=== PATIENT | female | born 1990 ===

== ENCOUNTER 2017-03-08 19:08 | Emergency (ER) | payer OTHER ==
[2017-03-08 19:17] VITALS: BP 118/78; PULSE 100; RESP 18; TEMP 98.5; O2SAT 99
[2017-03-08] MEDS ORDERED: Sodium Chloride 0.9% 1,000 ML IV STA (19:29)
--- NOTE | 2017-03-08 19:31 | ED PDOC ---
HPI: Abdomen Time Seen by Provider: 03/08/17 19:23 Chief Complaint (Nursing): Abdominal Pain Chief Complaint (Provider): Abd pain History Per: Patient History/Exam Limitations: no limitations Onset/Duration Of Symptoms: Days (Tuesday) Outside of [place] travel?: No Additional Complaint(s): Bubbling abd pain/cramping. Pt. had shrimp and symptoms started shortly after. Diarhea, multiple times nonbloody. No back pain, chest pain, dyspnea, weakness, headaches, dizziness, travel. No fever. No nausea, vomit. Past Medical History Reviewed: Nursing Documentation, Vital Signs Vital Signs: Last Vital Signs Temp 98.5 F 03/08/17 19:15 Pulse 100 H 03/08/17 19:15 Resp 18 03/08/17 19:15 BP 118/78 03/08/17 19:15 Pulse Ox 99 03/08/17 19:32 - Medical History PMH: No Chronic Diseases - Surgical History Surgical History: No Surg Hx - Family History Family History: States: Unknown Family Hx - Living Arrangements Living Arrangements: With Family - Social History Alcohol: None Drugs: Denies - Allergies Allergies/Adverse Reactions: Allergies Allergy/AdvReac Type Severity Reaction Status Date / Time No Known Allergies Allergy Verified 03/08/17 19:15 Review of Systems ROS Statement: Except As Marked, All Systems Reviewed And Found Negative Gastrointestinal: Positive for: Abdominal Pain, Diarrhea Physical Exam - Reviewed Nursing Documentation Reviewed: Yes Vital Signs Reviewed: Yes - Physical Exam Appears: Positive for: Non-toxic, No Acute Distress Head Exam: Positive for: ATRAUMATIC, NORMAL INSPECTION, NORMOCEPHALIC Skin: Positive for: Normal Color, Warm, DRY Eye Exam: Positive for: EOMI, Normal appearance, PERRL ENT: Positive for: Normal ENT Inspection Neck: Positive for: Normal, Painless ROM Cardiovascular/Chest: Positive for: Regular Rate, Rhythm Respiratory: Positive for: CNT, Normal Breath Sounds Gastrointestinal/Abdominal: Positive for: Bowel Sounds, Soft, Tenderness ( diffuse mild). Negative for: Guarding Back: Positive for: Normal Inspection. Negative for: L CVA Tenderness, R CVA Tenderness Extremity: Positive for: Normal ROM. Negative for: Tenderness, Pedal Edema Neurologic/Psych: Positive for: Alert, Oriented - Laboratory Results Result Diagrams: 03/08/17 19:51 03/08/17 19:51 Interpretation Of Abn Labs: 958.27 bhcg - ECG O2 Sat by Pulse Oximetry: 99 - CT Scan/US US Other Rad Studies (CT/US): Read By Radiologist Other Rad Interpretation: ? IUP - Progress ED Course And Treament: 2152: Pt. stable. AAOx3. Pain free. Tolerated PO. FU with obgyn or return in 3 days for repeat bhcg and possible US. Inconclusive information to r/o ectopic vs IUP. Disposition - Clinical Impression Clinical Impression: Early stage of - Patient ED Disposition Is Patient to be Admitted: No Counseled Patient/Family Regarding: Studies Performed, Diagnosis, Need For Followup - Disposition [facility] - [facility]17 Disposition: Routine/Home Disposition Time: 22:04 Condition: STABLE Additional Instructions: Return in 3 days or see your obgyn in 3 days for repeat bhcg and ultrasound to confirm intrauterine and rule out ectopic . Return right away if increased pain, dizziness, weakness, or not feeling right. Instructions: (ED) Forms: [facility] (Occ[place]), [facility] ED School/Work Excuse
[2017-03-08 19:54] LABS: BASO % 0.4 % (0.0-2.0); EOS % 0.6 % (0.0-4.0); HEMATOCRIT 35.2 % (34.0-47.0); LYMPH # 2.4 K/uL (1.0-4.3); LYMPH % 31.3 % (20.0-40.0); MEAN CELL VOLUME 89.6 fl (81.0-99.0); MEAN CORPUSCULAR HEMOGLOBIN 30.3 pg (27.0-31.0); MEAN CORPUSCULAR HGB CONC 33.8 g/dL (33.0-37.0); MEAN PLATELET VOLUME 8.2 fl (7.2-11.7); MONO # 0.6 K/uL (0.0-0.8); MONO % 7.5 % (0.0-10.0); NEUT # 4.7 K/uL (1.8-7.0); NEUT % 60.2 % (50.0-75.0); RED CELL DISTRIBUTION WIDTH 13.2 % (11.5-14.5); WHITE BLOOD COUNT 7.8 K/uL (4.8-10.8)
[2017-03-08 20:04] LABS: ALB/GLOB RATIO 1.5 (1.0-2.1); ALKALINE PHOSPHATASE 34 U/L (38-126); ALT/SGPT 30 U/L (9-52); AST/SGOT 20 U/L (14-36); BILIRUBIN,TOTAL 0.3 mg/dl (0.2-1.3); BLOOD UREA NITROGEN 13 mg/dl (7-17); CALCIUM 8.4 mg/dL (8.4-10.2); CARBON DIOXIDE 24 mmol/L (22-30); CHLORIDE 106 mmol/L (98-107); GFR AFRICAN-AMERICAN > 60; GLUCOSE,RANDOM 102 mg/dL (65-105); LIPASE 66 U/L (23-300); POTASSIUM 3.4 MMOL/L (3.6-5.0); SODIUM 140 mmol/l (132-148); TOTAL PROTEIN 6.9 G/DL (6.3-8.2)
--- NOTE | 2017-03-09 07:40 | US ---
HISTORY: and pain Beta HCG results: Attending Menstrual status: LMP 02/07/2017. COMPARISON: None available. TECHNIQUE: Transvaginal only. Real -time technique with 2D, duplex and color Doppler FINDINGS: UTERUS: Measures 3.7 x 4.6 x 7.7 cm. Normal in size and appearance. No fibroid or other mass lesion seen. ENDOMETRIUM: Measures gestational sac measurement 2.2 mm below threshold for calculation of reliable gestational age. No pole or yolk sac identified CERVIX: No cervical abnormality identified. Closed cervix 3.3 cm RIGHT OVARY: Measures 2.1 x 3.2 x 3.4 cm. No solid mass. Normal flow. LEFT OVARY: Measures 1.8 x 1.8 x 2.3 cm. No solid mass. Normal flow. FREE FLUID: No significant free fluid noted. OTHER FINDINGS: None. IMPRESSION: Small gestational sac, mean diameter 2.2 mm Below the threshold for calculation of a reliable gestational age. Concordant results (preliminary interpretation) provided by [facility]. Procedure Completed: 20:53 Preliminary ([facility]) Report: Dictated and Authenticated: 21:21 Final Interpretation: 07:38 March 09, 2017.
== END 2017-03-08 22:25 | disposition home or self-care (01) ==
LOC: H.ER 19:08
DX: Z33.1 Pregnant state, incidental (principal)

== ENCOUNTER 2017-03-11 16:44 | Emergency (ER) | payer SELFPAY ==
[2017-03-11 16:54] VITALS: BP 99/56; PULSE 78; RESP 16; TEMP 98.8; O2SAT 100
--- NOTE | 2017-03-11 17:24 | ED PDOC ---
HPI: General Adult Time Seen by Provider: 03/11/17 16:50 Chief Complaint (Nursing): Female Genitourinary Chief Complaint (Provider): Repeat Blood Work History Per: Patient History/Exam Limitations: no limitations Have you had recent travel within the past 21 days to any of the following countries: [place], [place], [place] or [place]?: No Additional Complaint(s): Lucila Romero, a 27 year old female, presents to the ED for repeat blood work. The patient reports that she was seen here 2 days ago and had an ultra sound performed. She reports that when she was seen on Tuesday she was initially here for diarrhea and abdominal cramping, which has since resolved. She states that she found out she was at that time and was told to follow up to have her beta levels rechecked. Denies nausea, vomiting, dysuria, hematuria. No allergies PMD: NO FAMILY PROVIDER Past Medical History Reviewed: Historical Data, Nursing Documentation, Vital Signs Vital Signs: Last Vital Signs Temp 98.8 F 03/11/17 16:51 Pulse 78 03/11/17 16:51 Resp 16 03/11/17 16:51 BP 99/56 L 03/11/17 16:51 Pulse Ox 100 03/11/17 17:30 - Medical History PMH: No Chronic Diseases - Surgical History Surgical History: No Surg Hx - Family History Family History: States: Unknown Family Hx - Social History Current smoker - smoking cessation education provided: No Alcohol: None Drugs: Denies - Home Medications Home Medications: Ambulatory Orders Medication Instructions Recorded Vit No.78/Iron/FA 1 each PO DAILY #30 tablet 03/11/17 [Prenatabs FA Tablet] - Allergies Allergies/Adverse Reactions: Allergies Allergy/AdvReac Type Severity Reaction Status Date / Time No Known Allergies Allergy Verified 03/08/17 19:15 Review of Systems ROS Statement: Except As Marked, All Systems Reviewed And Found Negative Constitutional: Positive for: Other (Repeat blood work) Physical Exam - Reviewed Nursing Documentation Reviewed: Yes Vital Signs Reviewed: Yes - Physical Exam Appears: Positive for: Non-toxic, No Acute Distress Head Exam: Positive for: ATRAUMATIC, NORMAL INSPECTION, NORMOCEPHALIC Skin: Positive for: Normal Color, Warm, Dry. Negative for: Rash Eye Exam: Positive for: Normal appearance, EOMI, PERRL. Negative for: Nystagmus ENT: Positive for: Normal ENT Inspection. Negative for: Nasal Congestion, Tonsillar Exudate Neck: Positive for: Normal, Painless ROM, Supple Cardiovascular/Chest: Positive for: Regular Rate, Rhythm, Chest Non Tender. Negative for: Tachycardia Respiratory: Positive for: Normal Breath Sounds. Negative for: Rales, Rhonchi, Wheezing, Respiratory Distress Gastrointestinal/Abdominal: Positive for: Normal Exam, Bowel Sounds, Soft. Negative for: Mass, Guarding, Rebound Back: Positive for: Normal Inspection. Negative for: L CVA Tenderness, R CVA Tenderness Extremity: Positive for: Normal ROM, Tenderness. Negative for: Deformity, Swelling Neurologic/Psych: Positive for: Alert, Oriented, Gait - ECG O2 Sat by Pulse Oximetry: 100 (RA) Pulse Ox Interpretation: Normal Medical Decision Making Medical Decision Makin Initial Impression 27 y/o female presenting for repeat bloodwork Initial Plan: * Upreg * Udip * [id number] * Reevaluation Beta 3927 No abdominal pain or bleeding, no US indicated at this time. Pt given OB to follow up with. Started on Pre joey vitamins. Advised to return to ED if at anytime condition worsens Scribe Attestation Documented by Melinda Avalos acting as a scribe for Sue Stewart PA-C. Scribe Attestation All medical record entries made by the Scribe were at my direction and personally dictated by me. I have reviewed the chart and agree that the record accurately reflects my personal performance of the history, physical exam, medical decision making, and the department course for this patient. I have also personally directed, reviewed, and agree with the discharge instructions and disposition. Disposition - Clinical Impression Clinical Impression: Early stage of - Patient ED Disposition Is Patient to be Admitted: No - Disposition [facility] Disposition: Routine/Home Disposition Time: 23:09 Condition: STABLE Additional Instructions: Beta today: 6337 Prescriptions: Vit No.78/Iron/FA [Prenatabs FA Tablet] 1 each PO DAILY #30 tablet Instructions: (ED) Forms: [facility] (Syrian)
[2017-03-11 18:33] LABS: RBC URINE 4 /hpf (0-3); URINE BACTERIA RARE (<OCC); URINE BILIRUBIN NEGATIVE (NEGATIVE); URINE BLOOD NEGATIVE (NEGATIVE); URINE COLOR YELLOW (YELLOW); URINE GLUCOSE (UA) NEG (Normal); URINE KETONE TRACE mg/dL (NEGATIVE); URINE LEUKOCYTE ESTERASE NEG Leu/uL (Negative); URINE PROTEIN NEGATIVE (NEGATIVE); URINE UROBILINOGEN 0.2-1.0 mg/dL (0.2-1.0); WBC URINE < 1 /hpf (0-5)
== END 2017-03-11 19:39 | disposition home or self-care (01) ==
LOC: H.ER 16:44
DX: O26.91 Pregnancy related conditions, unspecified, first trimester (principal); R10.2 Pelvic and perineal pain

== ENCOUNTER 2017-04-20 09:41 | Emergency (ER) | payer SELFPAY ==
[2017-04-20 10:31] VITALS: BP 105/62; PULSE 88; RESP 18; TEMP 97.8; O2SAT 99
--- NOTE | 2017-04-20 10:51 | ED PDOC ---
HPI: Abdomen Chief Complaint (Provider): abd pain History Per: Patient History/Exam Limitations: no limitations Outside of US travel?: No Current Symptoms Are (Timing): Gone Now Location Of Pain/Discomfort: RUQ Quality Of Discomfort: "Pain" Associated Symptoms: Constipation Exacerbating Factors: Food Alleviating Factors: Rest Last Bowel Movement: Yesterday <Francisco Padilla - Last Filed: 04/20/17 11:54> <Lexis Corey - Last Filed: 04/20/17 12:10> Time Seen by Provider: 04/20/17 10:28 Chief Complaint (Nursing): Abdominal Pain Additional Complaint(s): 27 y/o F with no significant PMhx presents to ED for persistent RUQ pain. As per patient pain started about 2 month ago, is intermittent and worsen with food. Denies vomiting, nausea, fever, dysuria, hematuria, diarrhea. Patient admits suffering from constipation for the past month. She is 11 weeks and denies vaginal bleeding, LOF, contractions or pelvic pain. (Francisco Padilla ) Supervising Attending Note - Supervising Attending Note The Documented history was done by the: Physician Escort Blind The documented physical exam was done by the: Physician Escort Blind The documented procedures were done by the: Physician Escort Blind - Attestation: I have personally seen and examined this patient.: Yes I have fully participated in the care of the patient.: Yes I have reviewed all pertinent clinical information: Yes <Lexis Corey - Last Filed: 04/20/17 12:10> Past Medical History Reviewed: Vital Signs - Medical History PMH: No Chronic Diseases - Surgical History Surgical History: No Surg Hx - Family History Family History: States: Unknown Family Hx - Living Arrangements Living Arrangements: With Family - Social History Current smoker - smoking cessation education provided: No Alcohol: None Drugs: Denies <Francisco Padilla - Last Filed: 04/20/17 11:54> <Lexis Corey - Last Filed: 04/20/17 12:10> Vital Signs: Last Vital Signs Temp 97.8 F 04/20/17 10:20 Pulse 88 04/20/17 10:20 Resp 18 04/20/17 10:20 BP 105/62 04/20/17 10:20 Pulse Ox 99 04/20/17 12:00 - Home Medications Home Medications: Ambulatory Orders Medication Instructions Recorded Vit No.78/Iron/FA 1 each PO DAILY #30 tablet 03/11/17 [Prenatabs FA Tablet] - Allergies Allergies/Adverse Reactions: Allergies Allergy/AdvReac Type Severity Reaction Status Date / Time No Known Allergies Allergy Verified 04/20/17 10:28 Review of Systems ROS Statement: Except As Marked, All Systems Reviewed And Found Negative Gastrointestinal: Positive for: Abdominal Pain, Constipation, Other (bloating) <Francisco Padilla - Last Filed: 04/20/17 11:54> Physical Exam - Physical Exam Appears: Positive for: Well, Non-toxic Skin: Positive for: Normal Color, Warm Eye Exam: Positive for: Normal appearance, PERRL Cardiovascular/Chest: Positive for: Regular Rate, Rhythm. Negative for: Gallop , JVD Respiratory: Positive for: Normal Breath Sounds. Negative for: Crackles, Rales , Wheezing, Respiratory Distress Gastrointestinal/Abdominal: Positive for: Soft, Tenderness (Diffuse mild tenderness. ). Negative for: Distended, Guarding, Rebound Back: Negative for: L CVA Tenderness, R CVA Tenderness Extremity: Negative for: Tenderness, Pedal Edema Neurologic/Psych: Positive for: Alert, Oriented. Negative for: Motor/Sensory Deficits <Francisco Padilla - Last Filed: 04/20/17 11:54> - Laboratory Results Result Diagrams: 04/20/17 10:50 04/20/17 10:50 - ECG O2 Sat by Pulse Oximetry: 99 <Francisco Padilla - Last Filed: 04/20/17 11:54> - Laboratory Results Result Diagrams: 04/20/17 10:50 04/20/17 10:50 <Lexis Corey - Last Filed: 04/20/17 12:10> - Progress ED Course And Treament: Patient had no pain at the time she presented to ED VS WNL CBC, CMP and UA unremarkable Prelim report of RUQ shows GB polyps, no stones, liver, R/kidney, Pancreas unremarkable(Pending official report) Patient to be DC home and f/u as outpatient (Francisco Padilla) Medical Decision Making <Francisco Padilla - Last Filed: 04/20/17 11:54> <Lexsi Corey - Last Filed: 04/20/17 12:10> Medical Decision Makin weeks Chronic RUQ pain(Asymptomatic at the time of exam at ED) R/O Gallbladder/Hepatic disease vs Constipation F/U Abd US, Urinedip, CMP, CBC. (Francisco Padilla) Disposition - Patient ED Disposition Is Patient to be Admitted: No Counseled Patient/Family Regarding: Diagnosis, Need For Followup - Disposition Disposition: Routine/Home Disposition Time: 11:58 <Francisco Padilla - Last Filed: 04/20/17 11:54> <Lexis Corey - Last Filed: 04/20/17 12:10> - Clinical Impression Clinical Impression: Right upper quadrant abdominal pain, Gallbladder polyp - Disposition Referrals: [facility] [Outside] [facility] Condition: GOOD Additional Instructions: F/U [facility] your PMD at [facility] Return to ED if sever abd pain, vaginal bleeding, fever, vomiting Instructions: (ED), Biliary Colic (ED) Forms: [facility] (Maltese) Print Language: [place]
[2017-04-20 11:08] LABS: BASO % 0.6 % (0.0-2.0); EOS % 0.5 % (0.0-4.0); HEMATOCRIT 35.5 % (34.0-47.0); LYMPH # 1.7 K/uL (1.0-4.3); LYMPH % 24.4 % (20.0-40.0); MEAN CELL VOLUME 89.9 fl (81.0-99.0); MEAN CORPUSCULAR HEMOGLOBIN 30.7 pg (27.0-31.0); MEAN CORPUSCULAR HGB CONC 34.1 g/dL (33.0-37.0); MEAN PLATELET VOLUME 8.8 fl (7.2-11.7); MONO # 0.4 K/uL (0.0-0.8); MONO % 6.1 % (0.0-10.0); NEUT # 4.7 K/uL (1.8-7.0); NEUT % 68.4 % (50.0-75.0); NRBC % 0.1 % (0.0-0.0); RED CELL DISTRIBUTION WIDTH 13.3 % (11.5-14.5); WHITE BLOOD COUNT 6.9 K/uL (4.8-10.8)
[2017-04-20 11:17] LABS: ALB/GLOB RATIO 1.3 (1.0-2.1); ALKALINE PHOSPHATASE 32 U/L (38-126); ALT/SGPT 27 U/L (9-52); AST/SGOT 19 U/L (14-36); BILIRUBIN,TOTAL 0.3 mg/dl (0.2-1.3); BLOOD UREA NITROGEN 9 mg/dl (7-17); CALCIUM 8.9 mg/dL (8.4-10.2); CARBON DIOXIDE 24 mmol/L (22-30); CHLORIDE 103 mmol/L (98-107); GFR AFRICAN-AMERICAN > 60; GLUCOSE,RANDOM 78 mg/dL (65-105); POTASSIUM 3.5 MMOL/L (3.6-5.0); SODIUM 137 mmol/l (132-148); TOTAL PROTEIN 7.1 G/DL (6.3-8.2)
--- NOTE | 2017-04-20 12:16 | US ---
HISTORY: RUQ pain COMPARISON: None. TECHNIQUE: Grayscale imaging was performed. FINDINGS: LIVER: Measures 10.8 cm in length. Normal echogenicity of the liver parenchyma. No mass. No intrahepatic bile duct dilatation. GALLBLADDER: There is a 4 mm polyp along the posterior wall and tiny polyp along the anterior wall. . No gallstones. COMMON BILE DUCT: Measures 2.0 mm. No stones. No dilatation. PANCREAS: Normal in size and echotexture. No mass. No ductal dilatation. RIGHT KIDNEY: Measures 10.3 cm in length. Normal echogenicity. No calculus, mass, or hydronephrosis. AORTA: No aneurysmal dilatation. IVC: Unremarkable. OTHER FINDINGS: None . IMPRESSION: No cholelithiasis or biliary dilatation. 4 mm gallbladder polyp along the posterior wall and a tiny polyp along the anterior wall.
== END 2017-04-20 12:30 | disposition home or self-care (01) ==
LOC: H.ER 09:41
DX: R10.11 Right upper quadrant pain (principal); K82.4 Cholesterolosis of gallbladder; Z33.1 Pregnant state, incidental

== ENCOUNTER 2017-05-07 11:40 | Emergency (ER) | payer SELFPAY ==
[2017-05-07 11:51] VITALS: BP 110/57; PULSE 92; RESP 16; TEMP 98; O2SAT 100; BMI 21.2
--- NOTE | 2017-05-07 12:31 | ED PDOC ---
HPI: CCC, URI, Sore Throat Time Seen by Provider: 05/07/17 12:24 Chief Complaint (Nursing): Cough, Cold, Congestion Chief Complaint (Provider): URI History Per: Patient Additional Complaint(s): 27 yo female, no PMH, presents to ED at 13wks c/o cough and congestion x4days. pt denies fevers at home. No abdominal pain or vaginal bleeding Past Medical History Reviewed: Nursing Documentation, Vital Signs Vital Signs: Last Vital Signs Temp 98.0 F 05/07/17 11:50 Pulse 92 H 05/07/17 11:50 Resp 16 05/07/17 11:50 BP 110/57 L 05/07/17 11:50 Pulse Ox 100 05/07/17 11:50 - Medical History PMH: No Chronic Diseases - Surgical History Surgical History: No Surg Hx - Family History Family History: States: Unknown Family Hx - Living Arrangements Living Arrangements: With Family - Social History Current smoker - smoking cessation education provided: No Alcohol: None Drugs: Denies - Home Medications Home Medications: Ambulatory Orders Medication Instructions Recorded Vit No.78/Iron/FA 1 each PO DAILY #30 tablet 03/11/17 [Prenatabs FA Tablet] - Allergies Allergies/Adverse Reactions: Allergies Allergy/AdvReac Type Severity Reaction Status Date / Time No Known Allergies Allergy Verified 05/07/17 11:58 Review of Systems ROS Statement: Except As Marked, All Systems Reviewed And Found Negative ENT: Positive for: Nose Congestion Respiratory: Positive for: Cough Physical Exam - Reviewed Nursing Documentation Reviewed: Yes Vital Signs Reviewed: Yes - Physical Exam Appears: Positive for: Well, Non-toxic, No Acute Distress Head Exam: Positive for: ATRAUMATIC, NORMAL INSPECTION, NORMOCEPHALIC Skin: Positive for: Normal Color, Warm, DRY Eye Exam: Positive for: EOMI, Normal appearance, PERRL ENT: Positive for: Normal ENT Inspection. Negative for: Pharyngeal Erythema, Tonsillar Exudate, Tonsillar Swelling Neck: Positive for: Normal, Painless ROM Cardiovascular/Chest: Positive for: Regular Rate, Rhythm Respiratory: Positive for: CNT, Normal Breath Sounds Gastrointestinal/Abdominal: Positive for: Normal Exam, Bowel Sounds, Soft Back: Positive for: Normal Inspection Extremity: Positive for: Normal ROM Neurologic/Psych: Positive for: Alert, Oriented - ECG O2 Sat by Pulse Oximetry: 100 Medical Decision Making Medical Decision Making: medications safe in discussed at length, as well as supportive care measures Disposition - Clinical Impression Clinical Impression: Upper respiratory infection, rhinitis - Patient ED Disposition Is Patient to be Admitted: No - Disposition Disposition: Routine/Home Disposition Time: 12:32 Condition: STABLE Instructions: Upper Respiratory Infection (ED) Forms: [facility] (Hungarian) - POA Present On Arrival: None
== END 2017-05-07 12:53 | disposition home or self-care (01) ==
LOC: H.ER 11:40
DX: O99.511 Diseases of the respiratory system complicating pregnancy, first trimester (principal); J31.0 Chronic rhinitis; Z3A.13 13 weeks gestation of pregnancy

== ENCOUNTER 2017-10-28 16:23 | Emergency (ER) | payer SELFPAY ==
[2017-10-28 16:39] VITALS: BMI 27.6
--- NOTE | 2017-10-28 17:26 | OBHP ---
Datetime: 10/28/2017 17:22 IP Adm Impression: Term, intrauterine IP Admit Plan: Observation/Evaluation; Discharge home Admit Comment, IP Provider: Patient is a @ 38.5 wks, reports increased vaginal leaking, +FM, so me cramping, no vaginal bleeding. No issues, no medical problems, no surgical history, no a llergies, taking no medication. VE=no pooling, neg nitrazine. closed/thick/high. FHR = 125 mod jhoan, + accels, no decels. One contraction on monitor. Pt ruled out for rupture and labor. Discharge pt home Pelvic Type - PN: Adequate Extremities - PN: Normal Abdomen - PN: Normal Back - PN: Normal Breast - PN: Normal Lungs - PN: Normal Heart - PN: Normal Thyroid - PN: Normal Neurologic - PN: Normal HEENT - PN: Normal General - PN: Normal FHR - Baseline A Provider: 125 Membranes, Provider: Intact Contraction Comments Provider: one Pool Provider: Negative Nitrazine Provider: Negative EGA AdmitDate IP: 38.5 Vital Signs Provider: Reviewed; Within Normal Limits IP Chief Complaint: Suspected ruptured membranes NICHD Variability Prov Fetus A: Moderate 6-25bpm NICHD Accel Fetus A IP Provider: 15X15 NICHD Decel Fetus A IP Provider: None Dilatation, Provider: closed Effacement, Provider: thick Station, Provider: -3 Genitourinary Exam: Normal DTRs - PN: Normal
--- NOTE | 2017-10-28 17:27 | OBDCSUM ---
Datetime: 10/28/2017 17:00 Discharged to, Provider: Home Follow up at, Provider: Clinic Disch Instr Activity: Normal activity Disch Instr Diet: Regular Discharge Instructions, Provider: Routine instructions given Discharge Time: 10/28/2017 17:00 Follow up in weeks, Provider: previously scheduled appointment for next Tuesday, November 04, 2017. Disch Referrals: None Contraception discussed, Prov: Yes Discharge Diagnosis Prov Other: rule out rupture
[2017-10-28 21:36] VITALS: BP 108/61; PULSE 82
== END 2017-10-28 17:00 | disposition home or self-care (01) ==
LOC: H.EROB2 16:23
DX: O47.1 False labor at or after 37 completed weeks of gestation (principal); Z3A.38 38 weeks gestation of pregnancy; O34.63 Maternal care for abnormality of vagina, third trimester; N89.8 Other specified noninflammatory disorders of vagina

== ENCOUNTER 2017-11-01 11:37 | Inpatient (IN) | payer MEDICAID, SELFPAY ==
[2017-11-01 12:52] VITALS: BMI 27.8
--- NOTE | 2017-11-01 13:46 | OBADHP ---
Datetime: 11/01/2017 12:25 Pelvic Type - PN: Adequate Extremities - PN: Normal Abdomen - PN: Normal Back - PN: Normal Breast - PN: Not Done Lungs - PN: Normal Heart - PN: Normal Thyroid - PN: Not Done Neurologic - PN: Normal HEENT - PN: Normal General - PN: Normal FHR - Baseline A Provider: 130 Vital Signs Provider: Reviewed; Within Normal Limits IP Chief Complaint: Uterine contractions; Suspected ruptured membranes NICHD Variability Prov Fetus A: Moderate 6-25bpm NICHD Accel Fetus A IP Provider: 15X15 FHR Category Provider Fetus A: Category I NICHD Decel Fetus A IP Provider: None Dilatation, Provider: fingertip Effacement, Provider: 40 Station, Provider: -2 Genitourinary Exam: Normal DTRs - PN: Not Done EGA AdmitDate IP: 39.2 Datetime: 11/01/2017 12:15 Admit Comment, IP Provider: 27 yo EGA 39.2 presents with suspected ROM and CTX, both started ar ound 4 hours prior to presenting to [facility]. Denies vaginal bleed. Reports: movements ROS: Denies: dizziness, headache, blurred vision, CP/SOB/N/V, dysuria PNC: Dr. Bailey; uncomplicated pmhx: gallbladder polyps famhx: none soc: denies: smoking, etoh, illicit drugs surg: none NKDA Meds: PNV Gen: AAOx3, in acute distress with each contraction Cardiac: S1S2, no murmurs Lungs: CTA bilaterally Abdo: gravid, active bowel sounds CVA: nontender 27 yo IUP EGA 39.2 dated via LMP of 01/30/2017 -Pt is grossly ruptured -Admit to L_D for progression of labor -Dr. Bailey was present for admission -IVHL -CBC, TS -Enema ordered -regular diet for lunch -Options for labor and delivery discussed with patient and her at bedside Case dw Dr. Irwin Dalton MD PGY1 OB Hospitalistnote: Pt seen and examined with PGY1. Spoek to pt about condition, IOL, labor, deli very, pain management, medications incl cytotec/cervidil/Pitocin, delivey and care. She ud nerstnds. Argees to starting with Cytotec Presentation-Admit: Vertex Amniotic Fluid Color, Provider: Clear Membranes, Provider: Ruptured Pool Provider: Positive IP Hx Assessment: The History has been Reviewed and is Current IP Adm Impression: Term, intrauterine ; No Active Labor; Ruptured Membranes IP Admit Plan: Admit to unit; Initiate labor induction protocol Datetime: 10/28/2017 17:22 Contraction Comments Provider: one Nitrazine Provider: Negative
[2017-11-01 14:17] LABS: BASO % 0.2 % (0.0-2.0); EOS % 0.4 % (0.0-4.0); HEMOGLOBIN 13.2 g/dL (12.0-16.0); LYMPH # 1.5 K/uL (1.0-4.3); LYMPH % 15.8 % (20.0-40.0); MEAN CELL VOLUME 92.9 fl (81.0-99.0); MEAN CORPUSCULAR HEMOGLOBIN 30.9 pg (27.0-31.0); MEAN CORPUSCULAR HGB CONC 33.3 g/dL (33.0-37.0); MONO # 0.5 K/uL (0.0-0.8); MONO % 5.6 % (0.0-10.0); NEUT # 7.5 K/uL (1.8-7.0); RBC 4.26 Mil/uL (3.80-5.20); RED CELL DISTRIBUTION WIDTH 13.5 % (11.5-14.5); WHITE BLOOD COUNT 9.7 K/uL (4.8-10.8)
[2017-11-01 15:09] VITALS: O2SAT 100
[2017-11-01] MEDS ORDERED: Lactated Ringer's 1,000 ML IV SCH ×2 (17:30)
[2017-11-01] MEDS ORDERED: Fentanyl/Bupivacaine HCl 250 ML EPI ONE (17:58)
--- NOTE | 2017-11-01 18:25 | OBPN ---
Datetime: 11/01/2017 17:15 IP Progress Impression: Normal progression of labor IP Informed Consent Obtain: Vaginal Delivery IP Procedures: Epidural Placement IP Progress Plan: Continue present management Pool Provider: Positive Membranes, Provider: Ruptured Amniotic Fluid Color, Provider: Clear FHR - Baseline A Provider: 130 IP Progress Note Comment: Pt seen and examined at bedside with Dr. Gayle Pt tried NO for pain relief but with limited success. Pt reports nausea with vomiting and requeste d epidural. Pt was examined by Dr. Gayle: 3 cm/75%/-2 Ordered 2 L LR bolus Anesthesia consulted for epidural placement case d/w Dr. Irwin Dalton MD PGY1 OB Hositalist note: Agree with PGY1 note. I examined this patient myself...Anesthesia consult NICHD Accel Fetus A IP Provider: 15X15 FHR Category Provider Fetus A: Category I NICHD Variability Prov Fetus A: Moderate 6-25bpm Dilatation, Provider: 3 Effacement, Provider: 75 Station, Provider: -2 NICHD Decel Fetus A IP Provider: None Datetime: 11/01/2017 12:25 Vital Signs Provider: Reviewed; Within Normal Limits Datetime: 11/01/2017 12:15 Presentation-Admit: Vertex Datetime: 10/28/2017 17:22 Nitrazine Provider: Negative Contraction Comments Provider: one
--- NOTE | 2017-11-01 20:14 | OBPN ---
Datetime: 11/01/2017 20:00 IP Progress Impression: Reassuring heart rate IP Informed Consent Obtain: Vaginal Delivery; Risks, Benefits and Alternatives Discussed IP Progress Plan: Augmentation; Anticipate Vaginal Delivery Pool Provider: Negative Membranes, Provider: Intact Contraction Comments Provider: 2-4m FHR - Baseline A Provider: 130 Presentation-Admit: Vertex IP Progress Note Comment: Notified that she feels better after epidural and that she is 4cm A; Latnet phase of labor PLAN: discussion with pt and will start Pitocin augmentation. She agreed NICHD Accel Fetus A IP Provider: 15X15 FHR Category Provider Fetus A: Category I NICHD Variability Prov Fetus A: Moderate 6-25bpm Dilatation, Provider: 4 NICHD Decel Fetus A IP Provider: None
--- NOTE | 2017-11-01 22:41 | OBPN ---
Datetime: 11/01/2017 22:35 IP Progress Impression: Normal progression of labor; Reassuring heart rate IP Informed Consent Obtain: Vaginal Delivery IP Progress Plan: Continue present management; Augmentation; Anticipate Vaginal Delivery Pool Provider: Positive Membranes, Provider: Ruptured Amniotic Fluid Color, Provider: Clear Contraction Comments Provider: 2-4m FHR - Baseline A Provider: 135 Presentation-Admit: Vertex IP Progress Note Comment: SHe feels fine. No pain. Active phase of labor PLAN: Pitocin at 4miu/h...observe labor progress Vital Signs Provider: Reviewed NICHD Accel Fetus A IP Provider: [id number] FHR Category Provider Fetus A: Category I NICHD Variability Prov Fetus A: Moderate 6-25bpm Dilatation, Provider: 6 Effacement, Provider: 90 Station, Provider: -1 NICHD Decel Fetus A IP Provider: None
[2017-11-01] MEDS ORDERED: Lidocaine 1% Inj (20ml) ONE (23:35)
[2017-11-02] MEDS ORDERED: Oxycodone/Acetaminophen 5/325 mg Tab PO PRN ×4 (03:19→04:43)
[2017-11-02] MEDS: Lactated Ringer's 1,000 ML IV SCH (04:47)
--- NOTE | 2017-11-02 08:26 | OBDS ---
DELIVERY PERSONNEL Delivery Doctor: Minnie Gayle DO Table Worker: Marilu Bates RN Anesthesiologist: Craig Chavira MD Resident: Kj Bailey Y. MATERNAL INFORMATION Delivery Anesthesia: Epidural Medications in Delivery: Pitocin Estimated Blood Loss (ml): QBL-100 Placenta Cultured: No Maternal Complications: None Provider Comments: of male infant from cephalic presentation 3025 g at 02:49 am 9-9. No nuchal cord was noted. was bulb suctioned at the perineum and was crying spontaneously. Cord w as doubled clamped and cut by father. was placed on mother stomach. Placental was delivered in tact spontaneously and three vessels cord was noted. QBL: 100 ml Ob Hospitalist on-call. I attended delivery which was done by Dr Bailey. Laceratoin repair was co mpleted by me. Agree with above note [facility] LABOR SUMMARY EDC: 11/06/2017 00:00 No. Babies in Womb: 1 Attempted: No Labor Anesthesia: Epidural LABOR INFORMATION Reason for Induction: Not Applicable Onset of Labor: 11/01/2017 22:30 Complete Dilatation: 11/02/2017 01:34 Oxytocin: Augmentation Group B Beta Strep: Negative Antibiotics # of Doses: 0 Steroids Given: None Reason Steroids Not Administered: Not Applicable MEMBRANES Membranes Rupture Method: Spontaneous Rupture of Membranes: 11/01/2017 09:45 Length of Rupture (hrs): 17.07 Amniotic Fluid Color: Clear Amniotic Fluid Amount: Moderate Amniotic Fluid Odor: Normal STAGES OF LABOR Stage 1 hrs: 3 Stage 1 min: 4 Stage 2 hrs: 1 Stage 2 min: 15 Stage 3 hrs: 0 Stage 3 min: 22 Total Time in Labor hrs: 4 Total Time in Labor min: 41 VAGINAL DELIVERY Episiotomy: None Laceration Extension: Second Degree Laceration Type: Perineal; Vaginal Laceration Repair: Yes Laceration Repair Note: 2nd degree perineal laceration repaired . Used 5 cc lidocaine, Vicryl rapide 2-0 x 2. Procedure well tolerated. Initial Vag Sponge Count: 5 Final Vag Sponge Count: 5 Initial Vag Sharps Count: 2 Final Vag Sharps Count: 2 Sponge Count Correct: Yes Sharps Count Correct: Yes Count Comment: count correct BABY A INFORMATION Infant Delivery Date/Time: 11/02/2017 02:49 Method of Delivery: Vaginal Born in Route : No : N/A Forceps: N/A Vacuum Extraction: Successful Shoulder Dystocia : No SHOULDER DYSTOCIA BABY A Infant Delivery Date/Time: 11/02/2017 02:49 PRESENTATION/POSITION BABY A Presentation: Cephalic PLACENTA INFORMATION BABY A Placenta Delivery Time : 11/02/2017 03:11 SCORES BABY A Heart Rate 1 min: >100 bpm Resp Effort 1 min: Good Cry Reflex Irritability 1 min: Cough or Sneeze or Pulls Away Muscle Tone 1 min: Active Motion Color 1 min: Body Babb, Extremities Blue Resuscitation Effort 1 min: N/A SCORE 1 MIN: 9 Heart Rate 5 min: >100 bpm Resp Effort 5 min: Good Cry Reflex Irritability 5 min: Cough or Sneeze or Pulls Away Muscle Tone 5 min: Active Motion Color 5 min: Body [place]abb, Extremities Blue Resuscitation Effort 5 min: N/A SCORE 5 MIN: 9 INFORMATION BABY A Gestational Age at Delivery: 39.3 Gestational Status: Term Infant Outcome : Liveborn Infant Condition : Stable Infant Sex: Male IDENTIFICATION/MEDS BABY A ID Band Number: [id number] ID Band Location: Left Leg; Left Arm WEIGHT/LENGTH BABY A Birthweight (gms): 3025 Infant Weight (lb): 6 Infant Weight (oz): 11 CORD INFORMATION BABY A No. Cord Vessels: 3 Nuchal Cord : N/A Cord Blood Taken: Yes Suction: Mouth; Nose ASSESSMENT BABY A Complications: None Physical Findings at Delivery: Within Normal Limits Infant Respirations: Appears Normal Elevator Repair Mechanic/ALS Called : No Infant Care By: Eyal Transferred To: Remains with Mother
--- NOTE | 2017-11-02 08:30 | OBDS ---
DELIVERY PERSONNEL Delivery Doctor: Minnie Gayle DO Dross Puller: Marilu Bates RN Anesthesiologist: Craig Chavira MD Resident: Kj Bailey Y. MATERNAL INFORMATION Delivery Anesthesia: Epidural Medications in Delivery: Pitocin Estimated Blood Loss (ml): QBL-100 Placenta Cultured: No Maternal Complications: None Provider Comments: of male infant from cephalic presentation 3025 g at 02:49 am 9-9. No nuchal cord was noted. was bulb suctioned at the perineum and was crying spontaneously. Cord w as doubled clamped and cut by father. was placed on mother stomach. Placental was delivered in tact spontaneously and three vessels cord was noted. QBL: 100 ml Ob Hospitalist on-call. I attended delivery which was done by Dr Bailey. Laceratoin repair was co mpleted by me. Agree with above note [facility] LABOR SUMMARY EDC: 11/06/2017 00:00 EDC: 11/06/2017 00:00 No. Babies in Womb: 1 Attempted: No Labor Anesthesia: Epidural LABOR INFORMATION Reason for Induction: Not Applicable Onset of Labor: 11/01/2017 22:30 Complete Dilatation: 11/02/2017 01:34 Oxytocin: Augmentation Group B Beta Strep: Negative Antibiotics # of Doses: 0 Steroids Given: None Reason Steroids Not Administered: Not Applicable MEMBRANES Membranes Rupture Method: Spontaneous Rupture of Membranes: 11/01/2017 09:45 Length of Rupture (hrs): 17.07 Amniotic Fluid Color: Clear Amniotic Fluid Amount: Moderate Amniotic Fluid Odor: Normal STAGES OF LABOR Stage 1 hrs: 3 Stage 1 min: 4 Stage 2 hrs: 1 Stage 2 min: 15 Stage 3 hrs: 0 Stage 3 min: 22 Total Time in Labor hrs: 4 Total Time in Labor min: 41 VAGINAL DELIVERY Episiotomy: None Laceration Extension: Second Degree Laceration Type: Perineal; Vaginal Laceration Repair: Yes Laceration Repair Note: 2nd degree perineal laceration repaired . Used 5 cc lidocaine, Vicryl rapide 2-0 x 2. Procedure well tolerated. Initial Vag Sponge Count: 5 Final Vag Sponge Count: 5 Initial Vag Sharps Count: 2 Final Vag Sharps Count: 2 Sponge Count Correct: Yes Sharps Count Correct: Yes Count Comment: count correct BABY A INFORMATION Infant Delivery Date/Time: 11/02/2017 02:49 Method of Delivery: Vaginal Method of Delivery: Vaginal Born in Route : No : N/A Forceps: N/A Vacuum Extraction: Successful Shoulder Dystocia : No SHOULDER DYSTOCIA BABY A Delivery Date/Time: 11/02/2017 02:49 PRESENTATION/POSITION BABY A Presentation: Cephalic PLACENTA INFORMATION BABY A Placenta Delivery Time : 11/02/2017 03:11 SCORES BABY A Heart Rate 1 min: >100 bpm Resp Effort 1 min: Good Cry Reflex Irritability 1 min: Cough or Sneeze or Pulls Away Muscle Tone 1 min: Active Motion Color 1 min: Body [place], Extremities Blue Resuscitation Effort 1 min: N/A SCORE 1 MIN: 9 Heart Rate 5 min: >100 bpm Resp Effort 5 min: Good Cry Reflex Irritability 5 min: Cough or Sneeze or Pulls Away Muscle Tone 5 min: Active Motion Color 5 min: Body [place], Extremities Blue Resuscitation Effort 5 min: N/A SCORE 5 MIN: 9 INFANT INFORMATION BABY A Gestational Age at Delivery: 39.3 Gestational Status: Term Infant Outcome : Liveborn Condition : Stable Infant Sex: Male Infant Sex: Male IDENTIFICATION/MEDS BABY A ID Band Number: [id number] ID Band Location: Left Leg; Left Arm WEIGHT/LENGTH BABY A Infant Birthweight (gms): 3025 Infant Weight (lb): 6 Infant Weight (oz): 11 CORD INFORMATION BABY A No. Cord Vessels: 3 Nuchal Cord : N/A Cord Blood Taken: Yes Suction: Mouth; Nose ASSESSMENT BABY A Complications: None Physical Findings at Delivery: Within Normal Limits Respirations: Appears Normal Full Stack Software Developer/ALS Called : No Care By: Eyal Transferred To: Remains with Mother
[2017-11-02] MEDS ORDERED: Benzocaine/Menthol SPRAY TOP PRN (09:48)
[2017-11-02 16:12] LABS: BASO # 0.1 K/uL (0.0-0.2); BASO % 0.4 % (0.0-2.0); EOS # 0.1 K/uL (0.0-0.7); EOS % 0.3 % (0.0-4.0); HEMOGLOBIN 12.1 g/dL (12.0-16.0); LYMPH # 1.7 K/uL (1.0-4.3); LYMPH % 11.2 % (20.0-40.0); MEAN CELL VOLUME 93.2 fl (81.0-99.0); MEAN CORPUSCULAR HEMOGLOBIN 30.7 pg (27.0-31.0); MEAN CORPUSCULAR HGB CONC 32.9 g/dL (33.0-37.0); MEAN PLATELET VOLUME 9.4 fl (7.2-11.7); MONO # 1.1 K/uL (0.0-0.8); MONO % 7.3 % (0.0-10.0); NEUT # 12.6 K/uL (1.8-7.0); NEUT % 80.8 % (50.0-75.0); RBC 3.94 Mil/uL (3.80-5.20); RED CELL DISTRIBUTION WIDTH 13.7 % (11.5-14.5); WHITE BLOOD COUNT 15.6 K/uL (4.8-10.8)
--- NOTE | 2017-11-02 18:54 | OBPPN ---
Datetime: 11/02/2017 06:13 PP Pain Prov: Within normal limits PP Nausea Prov: Denies PP Flatus Prov: No PP BM Prov: No PP Breasts Prov: Normal PP Heart Prov: Normal PP Lungs Prov: Normal PP Abdomen/Uterus Prov: Normal PP Lochia Prov: Normal PP Vulva/Perineum Prov: Not Done PP CVA Tenderness Prov: Not Done PP Extremities Prov: Normal PP C/S Incision Prov: Not Applicable PP Progress Prov: Normal PP Impression Prov: Normal progression PP Plan Prov: Continue present management PP Progress Note Prov: Patient seen and examined this morning at bedside. Mild abdominal pain but we ll controlled with pain medicines. Voiding w/o any difficulties, tolerating PO intake and reports goo d progression. No BM yet or passing gas per rectum. Denies chest pain, dyspnea, nausea, vomiting, and calf pain. VSS, afebrile Gen: awake, alert, no acute distress Resp: normal effort CV: S1S2, RRR Abd: soft, +BS, nontender, firm fundus below umbilicus Ext: no edema, no calf tenderness, Ale's sign negative Neuro/psych: AAOx3, no gross deficits, preserved mood and affect A/P: 27 yo , s/p NVD on 11/02/17 doing well on PPD 0. -Normal progression -C/w pain management -Encourage ambulation and -Anticipated discharge 11/04/17 -Patient is aware and all the questions were answered YBecerra PGY-1 obh addendum: pt seen _ examined by me. agree with above assessment and plan/ IP PP Procedures: None Vital Signs Provider PP: Reviewed; Within Normal Limits
--- NOTE | 2017-11-03 17:17 | OBPPN ---
Datetime: 11/03/2017 06:08 PP Pain Prov: Within normal limits PP Nausea Prov: Denies PP Flatus Prov: Yes PP BM Prov: Yes PP Breasts Prov: Not Done PP Heart Prov: Normal PP Lungs Prov: Normal PP Abdomen/Uterus Prov: Normal PP Lochia Prov: Normal PP Vulva/Perineum Prov: Not Done PP CVA Tenderness Prov: Normal PP Extremities Prov: Normal PP C/S Incision Prov: Not Applicable PP Progress Prov: Not Applicable PP Impression Prov: Normal progression PP Plan Prov: Continue present management PP Progress Note Prov: Patient seen and examined this morning at bedside. Mild abdominal pain but we ll controlled with pain medicines. mild low back pain. Voiding w/o any difficulties, tolerating PO in take and reports good progression. Normal BM yesterday. Denies chest pain, dyspnea, [place], vomiting, and calf pain. No urinary symptoms. VSS, afebrile Gen: awake, alert, no acute distress Resp: normal effort CV: S1S2, RRR Abd: soft, +BS, nontender, firm fundus below umbilicus Ext: no edema, no calf tenderness, Ale's sign negative Neuro/psych: AAOx3, no focal deficits, preserved mood and affect A/P: 27 yo , s/p NVD on 11/02/17 doing well on PPD 1. -Normal progression -C/w pain management -Encourage ambulation and -Anticipated discharge 11/04/17 -Patient is aware and all the questions were answered YBecerra PGY-1 Patient seen and evaluated by me this am. Agree with above resident note. --Dr. Morillo IP PP Procedures: None Vital Signs Provider PP: Reviewed; Within Normal Limits
--- NOTE | 2017-11-04 09:16 | OBPPN ---
Datetime: 11/04/2017 06:12 PP Pain Prov: Within normal limits PP Nausea Prov: Denies PP Flatus Prov: Yes PP BM Prov: Yes PP Breasts Prov: Not Done PP Heart Prov: Normal PP Lungs Prov: Normal PP Abdomen/Uterus Prov: Normal PP Lochia Prov: Normal PP Vulva/Perineum Prov: Not Done PP CVA Tenderness Prov: Not Done PP Extremities Prov: Normal PP C/S Incision Prov: Not Applicable PP Progress Prov: Normal PP Impression Prov: Normal progression PP Plan Prov: Discharge PP Progress Note Prov: Patient seen and examined this morning at bedside. Mild abdominal pain but we ll controlled with pain medicines. Voiding w/o any difficulties, tolerating PO intake and reports goo d progression. Normal BM and passing gas per rectum. Denies chest pain, dyspnea, nausea , vomiting, and calf pain. VSS, afebrile Gen: awake, no acute distress Resp: cta b/l CV: normal S1S2, RRR Abd: soft, +BS, nontender, firm fundus below umbilicus. Ext: no edema, no calf tenderness Neuro/psych: AAOx3, no gross deficits, preserved mood and affect A/P: 27 yo , s/p NVD on 11/02/17 doing well on PPD 2. -Normal progression -c/w pain management -Encourage ambulation and -Discharge home today. -Patient is aware and all the questions were answered YBecerra PGY-1 OB Hospitalist on-call. Pt seen and examined by me on rounds. Agree with PGY1 note [facility] Rubella Equivocal - order for RUbella vaccine prior to discharge IP PP Procedures: Rubella IP PP Procedures Comments: MMR Vital Signs Provider PP: Reviewed; Within Normal Limits
--- NOTE | 2017-11-04 09:16 | OBDCSUM ---
Datetime: 11/04/2017 06:14 Discharged to, Provider: Home Follow up at, Provider: Dr Bailey Disch Instr Activity: Normal activity Disch Instr Diet: Regular Discharge Instructions, Provider: Routine instructions given Discharge Diagnosis, Provider: Term Delivered Discharge Time: 11/04/2017 10:00 Follow up in weeks, Provider: 6 weeks Disch Referrals: None Contraception discussed, Prov: Yes Disch Activity Restrictions: No lifting; Minimize stair-climbing; No sexual activity; Nothing in vag shady - [place], tampons, douche Discharge Comment, Provider: EGA: 39.2 weeks Diagnosis: SROM, RF: none DOL: 11/02/2017 at 2:49 NB: M : 9/9 Weight: 3025 g PP summary: No serious complications during PP. Lochia= menses, mild pain, controlled with medicat ions. Blood type: A+ CBC pp: 12.1/36.7 Rubella equivocal: MMR before discharge. Discharge Date: 11/04/2017 at 10 am Discharge Instructions: -encourage -c/w PNV daily -Ibuprofen/percocet for pain PRN -Colace for constipation -Ambulate as tolerated -f/u NB visit and PP visit Contraception after Delivery: Undecided
[2017-11-04] MEDS ORDERED: Measles, Mumps, and Rubella 0.5 ML VIAL SC ONE (10:00)
[2017-11-05 00:31] VITALS: BP 102/66; PULSE 94; RESP 20; TEMP 98
== END 2017-11-04 12:00 | disposition home or self-care (01) | DRG 775 ==
LOC: H.EROB2 11:37 → H.EROB 12:53 → H.L&D 16:02 → H.OB/GYN 11-02 05:15
PROVIDERS: ADMIT Obstetrics & Gynecology; ATTEND Obstetrics & Gynecology
PROC: 0KQM0ZZ Repair Perineum Muscle, Open Approach (ICD-10-PCS; 2017-11-01)
PROC: 10E0XZZ Delivery of Products of Conception, External Approach (ICD-10-PCS; principal; 2017-11-02)
DX: O70.1 Second degree perineal laceration during delivery (principal); Z37.0 Single live birth; Z3A.39 39 weeks gestation of pregnancy

== ENCOUNTER 2018-09-19 01:55 | Emergency (ER) | payer SELFPAY ==
[2018-09-19 01:56] VITALS: BMI 27.8
--- NOTE | 2018-09-19 02:25 | ED PDOC ---
Upper Extremity Pain/Injury Time Seen by Provider: 09/19/18 02:12 Chief Complaint (Provider): right wrist pain History Per: Patient History/Exam Limitations: no limitations Onset/Duration Of Symptoms: Days (5) Current Symptoms Are (Timing): Still Present Hands/Wrist (Pic): 1 - Tenderness, Swelling, Pain Worse W/Movement Additional Complaint(s): 28 y/o female presents for evaluation of right wrist pain x 5 days. Patient states she has been holding her 10 month old a lot and baked last week and whisked for "a while", and noticed pain to start afterwards. Patient states she feels a "bump" to the area. Denies numbness/weakness right upper extremity, limitation of movement. No medication taken for relief thus far. Past Medical History Reviewed: Historical Data, Nursing Documentation, Vital Signs - Medical History PMH: No Chronic Diseases Denies: Depression, Diabetes, HTN - Surgical History Surgical History: No Surg Hx - Family History Family History: States: Unknown Family Hx - Home Medications Home Medications: Ambulatory Orders Medication Instructions Recorded Vit No.78/Iron/FA 1 each PO DAILY #30 tablet 03/11/17 [Prenatabs FA Tablet] - Allergies Allergies/Adverse Reactions: Allergies Allergy/AdvReac Type Severity Reaction Status Date / Time No Known Allergies Allergy Verified 11/01/17 12:59 Review of Systems ROS Statement: Except As Marked, All Systems Reviewed And Found Negative Musculoskeletal: Positive for: Hand Pain (right wrist pain) Physical Exam - Reviewed Nursing Documentation Reviewed: Yes Vital Signs Reviewed: Yes - Physical Exam Appears: Positive for: Well, Non-toxic, No Acute Distress Pulses-Radial (L): 2+ Pulses-Radial (R): 2+ Extremity: Positive for: Normal ROM, Tenderness (volar right wrist, radial aspect with + palpable mobile mass, tender. FROM. Distal NV/motor intact. ), Capillary Refill (<3 sec b/l UE) Neurological/Psych: Positive for: Awake, Alert, Oriented (x3) - Progress ED Course And Treament: -upreg -right wrist xray MARY wrap/immobilizer applied to right wrist Advised RICE. NSAIDs PRN pain Follow up PMD within 2-3 days Return precautions given Disposition - Clinical Impression Clinical Impression: Right wrist pain, Ganglion cyst of volar aspect of right wrist - Patient ED Disposition Is Patient to be Admitted: No Counseled Patient/Family Regarding: Studies Performed, Diagnosis, Need For Followup - Disposition Referrals: [facility] [Outside] Michelle Bialey MD [Family Provider] - Disposition: Routine/Home Disposition Time: 03:26 Condition: IMPROVED Instructions: Ganglion Cyst, Common Wrist Injuries
[2018-09-19 02:27] VITALS: BP 111/72; PULSE 68; RESP 18; TEMP 97.5; O2SAT 98
--- NOTE | 2018-09-19 15:16 | RAD ---
Date of service: 09/19/2018 PROCEDURE: Right Wrist Radiographs. HISTORY: pain radial aspect COMPARISON: None. TECHNIQUE: 4 views obtained. FINDINGS: BONES: No acute fracture or destructive bony lesion identified throughout the carpal bones including the navicular bone. JOINTS: Normal. No dislocation. SOFT TISSUES: Normal. OTHER FINDINGS: None. IMPRESSION: Unremarkable right wrist radiographs.
== END 2018-09-19 03:49 | disposition home or self-care (01) ==
LOC: H.ER 01:55
DX: M67.431 Ganglion, right wrist (principal)